=== PATIENT | male | born 1990 ===

== ENCOUNTER 2016-08-28 11:13 | Day surgery (SDC) | payer OTHER ==
[2016-08-28 11:37] VITALS: RESP 18; O2SAT 100
[2016-08-28 11:38] VITALS: BMI 23.1
[2016-08-28] MEDS ORDERED: Propofol 10 mg/ml Inj (20 ML) ONE (12:45)
[2016-08-28] MEDS ORDERED: Midazolam 2 MG/2 ML VIAL ONE (12:46)
[2016-08-28] MEDS ORDERED: Ketamine 50 mg/ml Inj (10 ml) ONE (12:46)
[2016-08-28] MEDS ORDERED: Lidocaine Hydrochloride 5 ML INJ ONE (12:47)
[2016-08-28] MEDS ORDERED: Lidocaine 1% Inj (20ml) ONE (12:53)
[2016-08-28] MEDS ORDERED: Lactated Ringer's 1,000 ML IV ONE ×3 (13:10→13:50)
[2016-08-28] MEDS ORDERED: Lactated Ringer's 1,000 ML IV SCH (14:00)
--- NOTE | 2016-08-28 14:05 | CP.SDSHP ---
Same Day Surgery H & P - History Proposed Procedure: excision of mass, left arm Pre-Op Diagnosis: mass of left arm - Allergies Allergies: Allergies No Known Allergies Allergy (Unverified 02/11/14 03:05) - Physical Exam Vital Signs: Vital Signs 08/28/16 08/28/16 08/28/16 11:31 11:35 11:54 Temperature 98.2 F Pulse Rate 102 H 102 H 96 H Respiratory 18 Rate Blood Pressure 131/91 H 136/82 O2 Sat by Pulse 100 Oximetry Neuro: WNL Heart: WNL Lungs: WNL GI: WNL - {Optional Preform as Required} Abdomen: WNL Integument: Other (L arm mass) - Impression Pt. Evaluated Today:Candidate for Anesthesia & Procedure: Yes - Date & Time Date: 08/28/16 Time: 13:00 Short Stay Discharge - Short Stay Discharge Admitting Diagnosis/Reason for Visit: L17.9 Disposition: HOME/ ROUTINE Referrals: Analisa Bowman MD [Primary Care Provider] - Additional Instructions (Diet, Activity): -Do not submerge in water (beach,pool, bath, etc.) -F/u in 10-14 days w/ Dr. Call
--- NOTE | 2016-08-28 14:20 | PCM.SURG1 ---
Surgeon's Initial Post Op Note - Surgeon's Notes Surgeon: Dr. Call Roast Master: Dr. Narayanan PGY-1 Type of Anesthesia: IV Sedation Pre-Operative Diagnosis: L arm mass Operative Findings: see operative report Post-Operative Diagnosis: see operative report Operation Performed: excision of left arm mass Specimen/Specimens Removed: calcified mass Estimated Blood Loss: EBL {In ML}: 5 Blood Products Given: N/A Drains Used: No Drains Post-Op Condition: Good Date of Surgery/Procedure: 08/28/16 Time of Surgery/Procedure: 13:00
[2016-08-28 14:31] VITALS: PULSE 60
[2016-08-28 14:54] VITALS: BP 107/69; TEMP 97.2
--- NOTE | 2016-08-28 15:37 | OP ---
PROCEDURE DATE: 08/28/2016 SURGEON: Dr. Call. CUSHION SEWER: Dr. Narayanan. ANESTHESIA: Local with IV sedation, Dr. Judge. PREOPERATIVE DIAGNOSIS: Mass, left arm. POSTOPERATIVE DIAGNOSIS: Mass, left arm. PROCEDURE: Excision mass, left arm. DESCRIPTION OF OPERATION: With the patient in the supine position, having received IV sedation, the left arm was prepped and draped in the usual sterile manner. A subcutaneous hard movable mass was pa lpable on the medial volar aspect of the left arm approximately 3 inches above the elbow crease and a small scar was visible overlying this mass where a previous exploration had been attempted. An damien ptical transversely oriented incision was marked including the previous incision and encompassing the area where the mass appeared to be slightly fixed to the skin. The skin surrounding this area was i nfiltrated with 1% lidocaine and the elliptical incision was made, taken down through the full thickn ess of skin. The mass was hard and irregular with a calcified consistency and was minimally adherent to any subcutaneous structures and the mass was excised along with the overlying ellipse of skin. H emostasis was achieved with cautery with a single skin vessel being cauterized, and closure was perfo rmed with 2 interrupted 3-0 Vicryl subcutaneous sutures followed by a running 4-0 Monocryl subcuticul ar suture and Steri-Strips. Dry sterile dressing was applied. The patient tolerated the procedure w ell and transferred to the recovery room in stable condition. Estimated blood loss for the procedure was 5 mL. Merlin Call MD cc: [id number] TT: 08/28/2016 15:36:00 maggy
== END 2016-08-28 15:40 | disposition home or self-care (01) ==
LOC: H.OPSURG 11:13
PROVIDERS: ATTEND Specialist
DX: R22.32 Localized swelling, mass and lump, left upper limb (principal)

== ENCOUNTER 2018-03-09 12:46 | Emergency (ER) | payer MEDICAID, OTHER ==
[2018-03-09 12:46] VITALS: BMI 23.1
--- NOTE | 2018-03-09 13:36 | ED PDOC ---
HPI: General Adult Chief Complaint (Provider): Neck Swelling History Per: Patient Onset/Duration Of Symptoms: Days (x2 months ) Additional Complaint(s): Rizwan Barcenas is a 27 year old male who presents to the emergency department complaining of neck swelling since January. He was seen in urgent care and was advised to see imaging. 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 Patient denies having fever or chills. PMD: Analisa Bowman <Haydee Barcenas - Last Filed: 03/09/18 18:59> <Marcos Salazar - Last Filed: 03/11/18 10:21> Time Seen by Provider: 03/09/18 13:20 Chief Complaint (Nursing): Abnormal Skin Integrity Past Medical History Reviewed: Historical Data, Nursing Documentation, Vital Signs Vital Signs: Last Vital Signs Temp 98.4 F 03/09/18 12:50 Pulse 76 03/09/18 12:50 Resp 16 03/09/18 12:50 BP 147/93 H 03/09/18 12:50 Pulse Ox 99 03/09/18 12:50 - Medical History PMH: Anxiety Denies: Chronic Kidney Disease - Surgical History Surgical History: Tonsillectomy (2013) - Family History Family History: States: Unknown Family Hx <Haydee Barcenas - Last Filed: 03/09/18 18:59> Vital Signs: Last Vital Signs Temp 98.2 F 03/09/18 18:49 Pulse 71 03/09/18 18:49 Resp 18 03/09/18 18:49 BP 144/76 03/09/18 18:49 Pulse Ox 99 03/09/18 18:59 <Marcos Salazar - Last Filed: 03/11/18 10:21> - Home Medications Home Medications: Ambulatory Orders Medication Instructions Recorded RX: Levocetirizine Dihydrochloride 5 mg PO DAILY 08/28/16 [Xyzal] - Allergies Allergies/Adverse Reactions: Allergies Allergy/AdvReac Type Severity Reaction Status Date / Time No Known Allergies Allergy Verified 03/09/18 12:50 Review of Systems ROS Statement: Except As Marked, All Systems Reviewed And Found Negative Constitutional: Negative for: Fever, Chills Skin: Positive for: Other (Neck swelling) <Barcenas,Setu B - Last Filed: 03/09/18 18:59> Physical Exam - Reviewed Nursing Documentation Reviewed: Yes Vital Signs Reviewed: Yes - Physical Exam Appears: Positive for: Well Head Exam: Positive for: ATRAUMATIC, NORMOCEPHALIC Eye Exam: Positive for: Normal appearance, EOMI, PERRL ENT: Positive for: Other (4 cm in diameter mass on right cervical region no fluctuation ) Cardiovascular/Chest: Positive for: Regular Rate, Rhythm. Negative for: Bradycardia, Tachycardia Respiratory: Positive for: Normal Breath Sounds. Negative for: Respiratory Distress Gastrointestinal/Abdominal: Positive for: Normal Exam. Negative for: Tenderness Back: Positive for: Normal Inspection Extremity: Positive for: Normal ROM Lymphatic: Positive for: Normal Exam Neurologic/Psych: Positive for: Alert, Oriented (x3). Negative for: Motor/Sensory Deficits <Haydee Barcenas B - Last Filed: 03/09/18 18:59> - Laboratory Results Result Diagrams: 03/09/18 13:40 03/09/18 13:40 - ECG O2 Sat by Pulse Oximetry: 99 (RA) Pulse Ox Interpretation: Normal - Progress ED Course And Treament: CT OF NECK: IMPRESSION: Extensive bilateral cervical lymphadenopathy throughout all compartments, including the supraclavicular nodes and axillary nodes bilaterally. Suspicious for a lymphoproliferative disorder though additional infectious or inflammatory etiology should be considered. D/W DR. CARLTON. STATES PATIENT WILL REQUIRE OUTPATIENT BIOPSY D/W DR. KILLIAN WHO STATES PATIENT CAN F/U OUTPATIENT IN OFFICE FOR BIOPSY CXR:NAD <Haydee Barcenas B - Last Filed: 03/09/18 18:59> - Laboratory Results Result Diagrams: 03/09/18 13:40 03/09/18 13:40 <Marcos Salazar M - Last Filed: 03/11/18 10:21> Medical Decision Making Medical Decision Making: Initial Time: Initial Impression:Mass on right cervical region Initial Plan: --CT neck soft tissue w/wo contrast --BMP --CBC with differential Scribe Attestation: Documented by Gunner Pleitez, acting as a scribe for Haydee Barcenas PA-C Provider Scribe Attestation: All medical record entries made by the Scribe were at my direction and personally dictated by me. I have reviewed the chart and agree that the record accurately reflects my personal performance of the history, physical exam, me dical decision making, and the department course for this patient. I have also personally directed, reviewed, and agree with the discharge instructions and disposition. <Haydee Barcenas - Last Filed: 03/09/18 18:59> Disposition - Patient ED Disposition Is Patient to be Admitted: No - Disposition Disposition: Routine/Home Disposition Time: 18:02 <Haydee Barcenas - Last Filed: 03/09/18 18:59> <Marcos Salazar - Last Filed: 03/11/18 10:21> - Clinical Impression Clinical Impression: Lymphadenopathy - Disposition Referrals: [facility] [Outside] Rufina Carlton MD [Staff Provider] - Hakeem Killian MD [Staff Provider] - Condition: FAIR Additional Instructions: PLEASE CALL [phone] TO ARRANGE FOLLOW UP WITH PRIMARY CARE. Instructions: Lymph Node Biopsy Addendum Addendum: 03/11/18 10:21 Reviewed chart and agree with Pa. <Marcso Salazar - Last Filed: 03/11/18 10:21>
[2018-03-09 14:07] LABS: BASO % 0.4 % (0.0-2.0); EOS % 0.7 % (0.0-4.0); HEMOGLOBIN 16.2 g/dL (12.0-18.0); LYMPH % 47.8 % (20.0-40.0); MEAN CELL VOLUME 96.8 fl (80.0-94.0); MEAN CORPUSCULAR HEMOGLOBIN 33.5 pg (27.0-31.0); MEAN CORPUSCULAR HGB CONC 34.6 g/dL (33.0-37.0); MEAN PLATELET VOLUME 9.6 fl (7.2-11.7); MONO # 0.2 K/uL (0.0-0.8); MONO % 4.2 % (0.0-10.0); NEUT % 46.9 % (50.0-75.0); NRBC % 0.3 % (0.0-0.0); RBC 4.83 Mil/uL (4.40-5.90); WHITE BLOOD COUNT 4.2 K/uL (4.8-10.8)
[2018-03-09 14:18] LABS: BLOOD UREA NITROGEN 13 mg/dl (9-20); CALCIUM 9.9 mg/dL (8.4-10.2); GFR NON-AFRICAN AMERICAN > 60
[2018-03-09] MEDS ORDERED: Iohexol 300 100 ML IJ ONE (15:40)
[2018-03-09] MEDS ORDERED: Sodium Chloride 0.9% 200 ML IV ONE (15:41)
--- NOTE | 2018-03-09 16:44 | CT ---
Date of service: 03/09/2018 PROCEDURE: CT NECK WITH CONTRAST HISTORY: evaluatione right sided neck mass COMPARISON: None available. TECHNIQUE: CT of the neck with intravenous contrast. Coronal and sagittal reformats generated. Intravenous contrast dose: 95 cc Omnipaque 300 Radiation dose: DLP 291.03 mGy-cm This CT exam was performed using one or more of the following dose reduction techniques: Automated exposure control, adjustment of the mA and/or kV according to patient size, and/or use of iterative reconstruction technique. FINDINGS: NASOPHARYNX: Prominent adenoidal tonsils which may be related to the patient's young age or to generalized lymphadenopathy. The palatine and lingual tonsils are unremarkable, however. SUPRAHYOID NECK: Unremarkable oropharynx, oral cavity, parapharyngeal space and retropharyngeal space. There is probable collapse of the vallecular bilaterally. Within normal limits. No mass suspected. INFRAHYOID NECK: Unremarkable larynx, hypopharynx, and supraglottic space. Vocal cords intact. MASS: None. GLANDS: Parotid and submandibular glands unremarkable. Normal size thyroid gland, without nodule. LYMPH NODES: Extensive lymphadenopathy throughout all compartments of the neck with nodes measuring up to 18 mm in short axis. There is supraclavicular lymphadenopathy up to 17 mm on the right side. There is bilateral axillary lymphadenopathy. CERVICAL SPINE: No fracture or focal lesion. VASCULAR STRUCTURES: Unremarkable. OTHER FINDINGS: None. IMPRESSION: Extensive bilateral cervical lymphadenopathy throughout all compartments, including the supraclavicular nodes and axillary nodes bilaterally. Suspicious for a lymphoproliferative disorder though additional infectious or inflammatory etiology should be considered.
--- NOTE | 2018-03-09 17:58 | RAD ---
Date of service: 03/09/2018 HISTORY: LYMPHADENOPATHY COMPARISON: No prior. TECHNIQUE: Chest PA and lateral FINDINGS: LUNGS: No active pulmonary disease. PLEURA: No significant pleural effusion identified. No pneumothorax apparent. CARDIOVASCULAR: Normal. OSSEOUS STRUCTURES: No significant abnormalities. VISUALIZED UPPER ABDOMEN: Normal. OTHER FINDINGS: None. IMPRESSION: No active disease.
[2018-03-09 18:50] VITALS: BP 144/76; PULSE 71; RESP 18; TEMP 98.2
[2018-03-09 18:59] VITALS: O2SAT 99
== END 2018-03-09 18:50 | disposition home or self-care (01) ==
LOC: H.ER 12:46
DX: R59.9 Enlarged lymph nodes, unspecified (principal); F41.9 Anxiety disorder, unspecified
CPT/HCPCS: 70491; 71046; 80048; 85025; 99283; Q9967